=== PATIENT | female | born 1955 ===

== ENCOUNTER 2017-11-12 14:06 | Emergency (ER) | payer MEDICAID ==
[2017-11-12 14:06] VITALS: BMI 24.1
--- NOTE | 2017-11-12 14:34 | ED PDOC ---
Arrival/HPI - General Chief Complaint: Dizziness/Lightheaded Time Seen by Provider: 11/12/17 14:25 Historian: Patient - History of Present Illness Narrative History of Present Illness (Text): 11/12/17 14:30 62 year old female, whose PMH includes hypertension, diabetes, asthma, hypercholesterolemia, and kidney stones, who presents to the emergency department complaining of intermittent vomiting since 2 weeks. Patient reports she went to PMD and was diagnosed with hematuria. Her PMD prescribed her with Levaquin antibiotics, which have made her vomiting symptoms worse associated with food intolerance, dizziness, and mild abdominal pain. Patient denies fever , shortness of breath, chest pain, headache, diarrhea, blood in stool, or other complaints. PMD: Dr. Olsen Time/Duration: > week Symptom Onset: Gradual Symptom Course: Worsening Context: Home Past Medical History - Provider Review Nursing Documentation Reviewed: Yes - Infectious Disease Hx of Infectious Diseases: None - Tetanus Immunization Tetanus Immunization: Unknown - Cardiac Hx Cardiac Disorders: Yes Hx Cardiac Arrhythmia: Yes Hx Hypertension: Yes - Pulmonary Hx Respiratory Disorders: Yes Hx Asthma: Yes - Neurological Hx Neurological Disorder: Yes Hx Vertigo: Yes - HEENT Hx HEENT Disorder: No - Renal Hx Renal Disorder: Yes Hx Kidney Stones: Yes - Endocrine/Metabolic Hx Endocrine Disorders: Yes Hx Diabetes Mellitus Type 2: Yes - Hematological/Oncological Hx Blood Disorders: No - Integumentary Hx Dermatological Disorder: No - Musculoskeletal/Rheumatological Hx Musculoskeletal Disorders: No - Gastrointestinal Hx Gastrointestinal Disorders: No - Genitourinary/Gynecological Hx Genitourinary Disorders: Yes Hx Urinary Tract Infection: Yes - Psychiatric Hx Depression: No Hx Emotional Abuse: No Hx Physical Abuse: No Hx Substance Use: No - Surgical History Hx Cholecystectomy: Yes - Anesthesia Hx Anesthesia: No Hx Anesthesia Reactions: No Hx Malignant Hyperthermia: No - Suicidal Assessment Feels Threatened In Home Enviroment: No Family/Social History - Physician Review Nursing Documentation Reviewed: Yes Family/Social History: Unknown Family HX Smoking Status: Never Smoked Hx Alcohol Use: No Hx Substance Use: No Allergies/Home Meds Allergies/Adverse Reactions: Allergies No Known Allergies Allergy (Verified 11/12/17 14:08) Home Medications: Home Meds Medication Instructions Recorded Confirmed Lisinopril 20 mg PO DAILY 05/07/13 11/12/17 MetFORMIN [glucoPHAGE] 1,000 mg PO BID 05/07/13 11/12/17 Metoprolol Tartrate [Lopressor] 50 mg PO DAILY 11/12/17 11/12/17 Review of Systems - Review of Systems Constitutional: absent: Fevers Respiratory: absent: SOB, Cough Cardiovascular: absent: Chest Pain Gastrointestinal: Abdominal Pain (mild ), Nausea, Vomiting, Food Intolerance. absent: Stool Changes, Diarrhea Genitourinary Female: Hematuria, Urine Output Changes Musculoskeletal: absent: Back Pain Skin: absent: Rash Neurological: Dizziness. absent: Headache Endocrine: absent: Diaphoresis Physical Exam Vital Signs Reviewed: Yes Vital Signs Temp Pulse Resp BP Pulse Ox 11/12/17 18:19 97.8 F 65 20 129/67 97 11/12/17 18:15 97.8 F 65 20 129/67 97 11/12/17 15:30 98.9 F 70 24 125/69 95 11/12/17 14:09 98.5 F 82 16 110/71 97 Temperature: Afebrile Blood Pressure: Normal Pulse: Regular Respiratory Rate: Normal Appearance: Positive for: Well-Appearing, Non-Toxic, Comfortable Pain Distress: None Mental Status: Positive for: Alert and Oriented X 3 - Systems Exam Head: Present: Atraumatic, Normocephalic Pupils: Present: PERRL Extroacular Muscles: Present: EOMI Conjunctiva: Present: Normal Respiratory/Chest: Present: Clear to Auscultation, Good Air Exchange. No: Respiratory Distress, Accessory Muscle Use, Wheezes, Decreased Breath Sounds, Rales, Retracting, Rhonchi Cardiovascular: Present: Regular Rate and Rhythm, Normal S1, S2. No: Murmurs Abdomen: Present: Normal Bowel Sounds. No: Tenderness, Distention, Peritoneal Signs, Rebound, Guarding Neurological: Present: GCS=15, CN II-XII Intact, Speech Normal Skin: Present: Warm, Dry, Normal Color. No: Rashes Psychiatric: Present: Alert, Oriented x 3, Normal Insight, Normal Concentration Medical Decision Making ED Course and Treatment: 11/12/17 Impression: 62 year old female with unremarkable physical exam complaining of vomiting since 2 weeks Differential Diagnosis included but are not limited to: Gastritis Plan: -- EKG -- Chest X-ray -- Labs -- Pepcid, Zofran, Sodium Chloride -- Urinalysis -- Reassess and disposition Progress Notes: 11/12/17 EKG: Ordered, reviewed, and independently interpreted the EKG. Rate : 78 BPM Rhythm : NSR arrhythmia Interpretation : No ST-segment elevations or depressions, no T-wave inversions, normal intervals. Comparison : No previous EKG for comparison. 11/12/17 16:08 CXR reviewed, shows: IMPRESSION: No active disease. 11/12/17 18:02 CT Abdomen/Pelvis reviewed, shows: IMPRESSION: No significant or acute findings to account for/ related to the clinical presentation. Patient states she had mild intermittent right flank pain at times and was concerned about Kidney Stones. CT reviewed and negative. Patient is now feeling better and is tolerating PO fluids. Keflex given. She will f/u with our clinic, Dr. Dickinson. She was advised to return to the ED if symptoms worsen or any other concern. - Lab Interpretations Lab Results: 11/12/17 15:35 11/12/17 15:35 Lab Results 11/12/17 16:45: pO2 48, VBG pH 7.35, VBG pCO2 45.0, VBG HCO3 24.8, VBG Total CO2 26.2, VBG O2 Sat (Calc) 88.3 H, VBG Base Excess -1.1 L, VBG Potassium 4.3, Glucose 122 H, Lactate 0.9, FiO2 21.0, Sodium 140.0, Chloride 109.0 H, Venous Blood Potassium 4.3 11/12/17 15:35: Sodium 141, Potassium 4.7, Chloride 106, Carbon Dioxide 26, Anion Gap 14, BUN 25 H, Creatinine 0.9, Est GFR ( Amer) > 60, Est GFR ( Non-Af Amer) > 60, Random Glucose 146 H, Calcium 10.0, Total Bilirubin 1.0, AST 54 H, ALT 52, Alkaline Phosphatase 88, Total Protein 7.3, Albumin 4.1, Globulin 3.2, Albumin/Globulin Ratio 1.3 11/12/17 15:35: WBC 9.3, RBC 4.30, Hgb 12.1, Hct 35.3 L, MCV 82.1, MCH 28.1, MCHC 34.3, RDW 12.9, Plt Count 142, MPV 12.7 H, Gran % 82.0 H, Lymph % (Auto) 13.9 L, Marshall % (Auto) 3.5, Eos % (Auto) 0.4 L, Baso % (Auto) 0.2, Gran # 7.59 H , Lymph # (Auto) 1.3, Marshall # (Auto) 0.3, Eos # (Auto) 0.0, Baso # (Auto) 0.02 11/12/17 14:43: Urine Color Yellow, Urine Appearance Clear, Urine pH 6.0, Ur Specific [place] >= 1.030, Urine Protein Negative, Urine Glucose (UA) Negative, Urine Ketones 15 H, Urine Blood Negative, Urine Nitrate Negative, Urine Bilirubin Small H, Urine Urobilinogen 0.2, Ur Leukocyte Esterase Moderate H, Urine RBC 0 - 2, Urine WBC 15 - 20, Ur Epithelial Cells 6 - 8, Amorphous Sediment Few, Urine Bacteria Many, Urine Other Uyeast I have reviewed the lab results: Yes - RAD Interpretation Radiology Orders: 11/12/17 14:36 CHEST PORTABLE [RAD] Stat 11/12/17 16:44 ABD & PELVIS W/O PO OR IV CONT [CT] Stat Gin Clerk: Radiologist - EKG Interpretation Interpreted by ED Physician: Yes Type: 12 lead EKG - Medication Orders Current Medication Orders: Discontinued Medications Cephalexin Monohydrate (Keflex) 500 mg PO STAT STA PRN Reason: Protocol Stop: 11/12/17 18:15 Last Admin: 11/12/17 18:28 Dose: 500 mg Famotidine (Pepcid 20mg/50ml Premix) 20 mg in 50 mls @ 100 mls/hr IVPB STAT STA Stop: 11/12/17 15:06 Last Admin: 11/12/17 15:17 Dose: 100 mls/hr eMAR Start Stop Document 11/12/17 15:17 OCS (Rec: 11/12/17 15:17 OCS [facility] [id number]) Intravenous Solution Start Date 11/12/17 Start Time 15:17 End Date 11/12/17 End time 15:47 Total Infusion Time 30 Sodium Chloride (Sodium Chloride 0.9%) 1,000 mls @ 999 mls/hr IV .Q1H1M STA Stop: 11/12/17 15:36 Last Admin: 11/12/17 15:16 Dose: 999 mls/hr eMAR Start Stop Document 11/12/17 15:16 OCS (Rec: 11/12/17 15:17 OCS [facility] [id number]) Intravenous Solution Start Date 11/12/17 Start Time 15:17 End Date 11/12/17 End time 16:18 Total Infusion Time 61 Ondansetron HCl (Zofran Inj) 4 mg IVP STAT STA Stop: 11/12/17 14:38 Last Admin: 11/12/17 15:17 Dose: 4 mg IVP Administration Document 11/12/17 15:17 OCS (Rec: 11/12/17 15:17 OCS [facility] [id number]) Charges for Administration # of IVP Administrations 1 - Scribe Statement The provider has reviewed the documentation as recorded by the Scribe An Walter Provider Scribe Attestation: All medical record entries made by the Scribe were at my direction and personally dictated by me. I have reviewed the chart and agree that the record accurately reflects my personal performance of the history, physical exam, medical decision making, and the department course for this patient. I have also personally directed, reviewed, and agree with the discharge instructions and disposition. Disposition/Present on Arrival - Present on Arrival Any Indicators Present on Arrival: Yes History of DVT/PE: No History of Uncontrolled Diabetes: Yes Urinary Catheter: No History of Decub. Ulcer: No History Surgical Site Infection Following: None - Disposition Have Diagnosis and Disposition been Completed?: Yes Diagnosis: Gastritis, Vomiting, UTI (urinary tract infection) Disposition: HOME/ ROUTINE Disposition Time: 18:15 Patient Plan: Discharge Condition: IMPROVED Discharge Instructions (ExitCare): Gastritis Additional Instructions: [address], thank you for letting us take care of you today. Your provider was Adiel Sifuentes DO and you were treated for VOMITING, GASTRITIS. The emergency medical care you received today was directed at your acute symptoms. If you were prescribed any medication, please fill it and take as directed. It may take several days for your symptoms to resolve. Return to the Emergency Department if your symptoms worsen, do not improve, or if you have any other problems. Please contact your doctor or call one of the physicians/clinics you have been referred to that are listed on the Patient Visit Information form that is included in your discharge packet. Bring any paperwork you were given at discharge with you along with any medications you are taking to your follow up visit. Our treatment cannot replace ongoing medical care by a primary care provider outside of the emergency department. Thank you for allowing the [facility] team to be part of your care today. If you had an X-Ray or CT scan: A Radiologist will review the ED reading if any change in treatment is needed we will contact you. If you had a blood, urine, or wound culture: It will take several days for the results, if any change in treatment is needed we will contact you. If you had an STI test: It will take 48 hours for the results. Please call after 1 week if you have not heard back. Prescriptions: Cephalexin [Keflex] 500 mg PO BID #14 capsule Ondansetron ODT [Zofran ODT] 4 mg PO Q6 #14 odt Ranitidine HCl [Zantac] 150 mg PO BID PRN #30 tablet PRN Reason: Pain, Mild (1-3) Referrals: Keshia Dickinson MD [Staff Provider] - Follow up with primary Forms: [employer] (Turkish)
[2017-11-12] MEDS ORDERED: Sodium Chloride 0.9% 1,000 ML IV STA (14:36)
[2017-11-12] MEDS ORDERED: Famotidine 20mg/50ml 20 MG/50 ML BAG IVPB STA (14:37)
[2017-11-12 14:56] LABS: URINE BILIRUBIN SMALL (NEGATIVE); URINE BLOOD NEGATIVE (NEGATIVE); URINE GLUCOSE (UA) NEGATIVE (NEGATIVE); URINE LEUKOCYTE ESTERASE MODERATE Leu/uL (NEGATIVE); URINE PROTEIN NEGATIVE mg/dL (<30 mg/dL); URINE UROBILINOGEN 0.2 E.U./dL (<1 E.U./dL)
[2017-11-12 14:57] LABS: URINE APPEARANCE CLEAR (CLEAR); URINE COLOR YELLOW (YELLOW)
[2017-11-12 15:19] LABS: URINE AMORPHOUS SEDIMENT FEW; URINE BACTERIA MANY (NEG); URINE RBC 0 - 2 /hpf (0-2); URINE WBC 15 - 20 /hpf (0-6)
[2017-11-12 15:40] LABS: BASO # 0.02 K/mm3 (0.0-2.0); BASO % 0.2 % (0.0-3.0); EOS % 0.4 % (1.5-5.0); GRAN # 7.59 (1.4-6.5); HEMOGLOBIN 12.1 g/dL (12.0-16.0); LYMPH # 1.3 (1.2-3.4); LYMPH % 13.9 % (22.0-35.0); MEAN CELL VOLUME 82.1 fl (80.0-105.0); MEAN CORPUSCULAR HEMOGLOBIN 28.1 pg (25.0-35.0); MEAN CORPUSCULAR HGB CONC 34.3 g/dl (31.0-37.0); MEAN PLATELET VOLUME 12.7 fl (7.0-11.0); MONO # 0.3 (0.1-0.6); MONO % 3.5 % (1.0-6.0); RBC 4.3 10^6/uL (3.5-6.1); RED CELL DISTRIBUTION WIDTH 12.9 % (11.5-14.5); WHITE BLOOD COUNT 9.3 10^3/ul (4.5-11.0)
[2017-11-12 15:53] LABS: ALB/GLOB RATIO 1.3 (1.1-1.8); ALBUMIN 4.1 g/dL (3.0-4.8); ALT/SGPT 52 U/L (7-56); AST/SGOT 54 U/L (14-36); BLOOD UREA NITROGEN 25 mg/dL (7-21); GFR AFRICAN-AMERICAN > 60; GFR NON-AFRICAN AMERICAN > 60
--- NOTE | 2017-11-12 15:57 | RAD ---
HISTORY: nausea COMPARISON: No prior. FINDINGS: LUNGS: No active pulmonary disease. PLEURA: No significant pleural effusion identified, no pneumothorax apparent. CARDIOVASCULAR: Normal. OSSEOUS STRUCTURES: No significant abnormalities. VISUALIZED UPPER ABDOMEN: Normal. OTHER FINDINGS: None. IMPRESSION: No active disease.
[2017-11-12 16:59] LABS: VENOUS BLOOD GAS BASE EXCESS -1.1 mmol/L (0.0-2.0); VENOUS BLOOD GAS PO2 48 mm/Hg (30-55); VENOUS BLOOD PH 7.35 (7.32-7.43)
--- NOTE | 2017-11-12 17:56 | CT ---
PROCEDURE: CT Abdomen and Pelvis without intravenous contrast HISTORY: right flank pain r/o stone COMPARISON: None. TECHNIQUE: Unenhanced study. Neither oral nor intravenous contrast administered. Sensitivity and specificity for acute inflammatory processes limited by the absence of oral and intravenous contrast. Radiation dose: Total exam DLP = 310.33 mGy-cm. This CT exam was performed using one or more of the following dose reduction techniques: Automated exposure control, adjustment of the mA and/or kV according to patient size, and/or use of iterative reconstruction technique. FINDINGS: LOWER THORAX: Unremarkable. LIVER: Unremarkable. No gross lesion or ductal dilatation. GALLBLADDER AND BILE DUCTS: Status post cholecystectomy. No abnormality is seen in the gallbladder fossa. PANCREAS: Unremarkable. No gross lesion or ductal dilatation. SPLEEN: Unremarkable. ADRENALS: Unremarkable. No mass. KIDNEYS AND URETERS: Unremarkable. No hydronephrosis. No solid mass. VASCULATURE: Unremarkable. No aortic aneurysm. BOWEL: Unremarkable. No obstruction. No gross mural thickening. APPENDIX: Unremarkable. Normal appendix. PERITONEUM: Unremarkable. No free fluid. No free air. LYMPH NODES: Unremarkable. No enlarged lymph nodes. BLADDER: Unremarkable. REPRODUCTIVE: Unremarkable. BONES: No acute fracture. OTHER FINDINGS: None. IMPRESSION: No significant or acute findings to account for/ related to the clinical presentation.
[2017-11-12 18:20] VITALS: BP 129/67; PULSE 65; RESP 20; TEMP 97.8; O2SAT 97
--- NOTE | 2017-11-13 09:13 | CARD ---
APPROVED REPORT EKG Measurement Heart [id number] <Conclusion> Normal sinus rhythm with sinus arrhythmia PRWP NSSTW changes No change
== END 2017-11-12 18:15 | disposition home or self-care (01) ==
LOC: ED 14:06
DX: N39.0 Urinary tract infection, site not specified (principal); K29.70 Gastritis, unspecified, without bleeding; R11.10 Vomiting, unspecified; E11.9 Type 2 diabetes mellitus without complications; I10 Essential (primary) hypertension; E78.00 Pure hypercholesterolemia, unspecified
CPT/HCPCS: 71045; 74176; 80053; 81001; 82803; 85025; 87086; 93005; 96361; 96365; 96375; 99285; J2405; J7030

== ENCOUNTER 2018-08-15 15:11 | Emergency (ER) | payer MEDICAID ==
[2018-08-15 15:24] VITALS: BP 110/63; PULSE 103; RESP 18; TEMP 98; O2SAT 97; BMI 21.6
[2018-08-15] MEDS ORDERED: Lidocaine 1% Inj (20ml) IJ STA (15:42)
--- NOTE | 2018-08-15 15:46 | ED PDOC ---
Arrival/HPI - General Time Seen by Provider: 08/15/18 15:29 Historian: Patient - History of Present Illness Narrative History of Present Illness (Text): 08/15/18 15:43 62 year old female, with past medical history of diabetes, presents to the ED for evaluation of right index finger swelling and redness for few days. Patient believes symptoms emerged after cleaning dishes with a Brillo pad few days ago. Patient denies any other associated somatic complaints. Patient denies any fevers, chills, headache, dizziness, chest pain, shortness of breath, dyspnea on exertion, cough, diaphoresis, abdominal pain, nausea, vomiting, diarrhea, back pain, neck pain, or any other complaints. Time/Duration: < week Symptom Onset: Gradual Symptom Course: Unchanged Activities at Onset: Light Context: Home Past Medical History - Provider Review Nursing Documentation Reviewed: Yes - Infectious Disease Hx of Infectious Diseases: None - Tetanus Immunization Tetanus Immunization: Unknown - Cardiac Hx Cardiac Disorders: Yes Hx Cardiac Arrhythmia: Yes Hx Hypertension: Yes - Pulmonary Hx Respiratory Disorders: Yes Hx Asthma: Yes - Neurological Hx Neurological Disorder: Yes Hx Vertigo: Yes - HEENT Hx HEENT Disorder: No - Renal Hx Renal Disorder: Yes Hx Kidney Stones: Yes - Endocrine/Metabolic Hx Endocrine Disorders: Yes Hx Diabetes Mellitus Type 2: Yes - Hematological/Oncological Hx Blood Disorders: No - Integumentary Hx Dermatological Disorder: No - Musculoskeletal/Rheumatological Hx Musculoskeletal Disorders: No - Gastrointestinal Hx Gastrointestinal Disorders: No - Genitourinary/Gynecological Hx Genitourinary Disorders: Yes Hx Urinary Tract Infection: Yes - Psychiatric Hx Depression: No Hx Emotional Abuse: No Hx Physical Abuse: No Hx Substance Use: No - Surgical History Hx Cholecystectomy: Yes - Anesthesia Hx Anesthesia: No Hx Anesthesia Reactions: No Hx Malignant Hyperthermia: No - Suicidal Assessment Feels Threatened In Home Enviroment: No Family/Social History - Physician Review Nursing Documentation Reviewed: Yes Family/Social History: Unknown Family HX Smoking Status: Never Smoked Hx Alcohol Use: No Hx Substance Use: No Allergies/Home Meds Allergies/Adverse Reactions: Allergies No Known Allergies Allergy (Verified 11/12/17 14:08) Home Medications: Home Meds Medication Instructions Recorded Confirmed Lisinopril 20 mg PO DAILY 05/07/13 11/12/17 MetFORMIN [glucoPHAGE] 1,000 mg PO BID 05/07/13 11/12/17 Metoprolol Tartrate [Lopressor] 50 mg PO DAILY 11/12/17 11/12/17 Review of Systems - Physician Review All systems were reviewed & negative as marked: Yes - Review of Systems Constitutional: absent: Fevers Eyes: absent: Vision Changes Respiratory: absent: SOB, Cough Cardiovascular: absent: Chest Pain Gastrointestinal: absent: Abdominal Pain, Diarrhea, Nausea, Vomiting Genitourinary Female: absent: Dysuria, Hematuria, Urine Output Changes Musculoskeletal: absent: Back Pain, Neck Pain Skin: Other (Right index finger swelling and redness) Neurological: absent: Headache, Dizziness Endocrine: absent: Diaphoresis Psychiatric: absent: Anxiety Physical Exam Vital Signs Reviewed: Yes Vital Signs Temp Pulse Resp BP Pulse Ox 08/15/18 15:22 98.0 F 103 H 18 110/63 97 Temperature: Afebrile Blood Pressure: Normal Pulse: Tachycardic Respiratory Rate: Normal Appearance: Positive for: Well-Appearing, Non-Toxic, Comfortable Pain Distress: None Mental Status: Positive for: Alert and Oriented X 3 Finger Stick Blood Glucose: 202 - Systems Exam Head: Present: Atraumatic, Normocephalic Pupils: Present: PERRL Extroacular Muscles: Present: EOMI Conjunctiva: Present: Normal Respiratory/Chest: Present: Clear to Auscultation, Good Air Exchange. No: Respiratory Distress, Accessory Muscle Use Cardiovascular: Present: Regular Rate and Rhythm, Normal S1, S2. No: Murmurs Upper Extremity: Present: Other (Right index finger paronychia). No: Cyanosis, Edema Lower Extremity: Present: Normal Inspection. No: Edema Neurological: Present: GCS=15, Speech Normal Skin: Present: Warm, Dry, Normal Color. No: Rashes Psychiatric: Present: Alert, Oriented x 3, Normal Insight, Normal Concentration Medical Decision Making ED Course and Treatment: 08/15/18 15:47 Impression: 62 year old female presents to the ED for evaluation of right index finger swelling and redness. Plan: -- Drainage -- Reassess and disposition Prior Visits: Notes and results from previous visits were reviewed. Progress Notes: 08/15/18 16:08 paronychia drained. with 1ml pus relieved. - Medication Orders Current Medication Orders: Lidocaine HCl (Lidocaine 1% (20ml)) 10 ml IJ STAT STA Stop: 08/15/18 15:43 - Scribe Statement The provider has reviewed the documentation as recorded by the Scribe Forest Brewster. All medical record entries made by the Scribe were at my direction and personally dictated by me. I have reviewed the chart and agree that the record accurately reflects my personal performance of the history, physical exam, medical decision making, and the department course for this patient. I have also personally directed, reviewed, and agree with the discharge instructions and disposition. Disposition/Present on Arrival - Present on Arrival Any Indicators Present on Arrival: No History of DVT/PE: No History of Uncontrolled Diabetes: Yes Urinary Catheter: No History Surgical Site Infection Following: None - Disposition Have Diagnosis and Disposition been Completed?: Yes Diagnosis: Paronychia Disposition: HOME/ ROUTINE Disposition Time: 16:08 Condition: STABLE Discharge Instructions (ExitCare): Paronychia (DC) Additional Instructions: please see hand specialist. return to any er with worsening. Prescriptions: Sulfamethoxazole/Trimethoprim [Bactrim DS 800 mg-160 mg] 1 tab PO BID #14 tab Referrals: Bailee Jones MD [Primary Care Provider] - Follow up with primary Forms: [employer] (Portuguese) - Incision & Drainage Of Abscess Anesthesia: Lidocaine 1% Prep Used: Sterile Water, Betadine Procedure: Incised W/Scalpel Blade#: (1), Drained Pus
[2018-08-15] MEDS ORDERED: TDAP Vaccine 0.5 mL Syr IM ONE (15:53)
[2018-08-15] MEDS ORDERED: Tmp-Smz 800 mg-160 mg DS Tab PO STA (16:05)
[2018-08-15] MEDS ORDERED: Naproxen 550 mg Tab PO STA (16:05)
== END 2018-08-15 16:47 | disposition home or self-care (01) ==
LOC: ED 15:11
DX: L03.011 Cellulitis of right finger (principal); E11.9 Type 2 diabetes mellitus without complications; I10 Essential (primary) hypertension; Z23 Encounter for immunization